=== PATIENT | female | born 1935 | race Caucasian/White ===

== ENCOUNTER 2017-11-12 09:41 | Inpatient (IN) | payer OTHER ==
[~2017-11-12] VITALS: Ht 149.9 cm; Wt 49.9 kg
[2017-11-12] MEDS ORDERED: XANAX2 MG PO (09:52)
[2017-11-17] MEDS ORDERED: LOSARTAN POTASS25 MG PO (11:40)
[2017-11-17] MEDS ORDERED: ISORDIL10 MG PO (11:40)
[2017-11-17] MEDS ORDERED: CLOPIDOGREL BIS75 MG PO (11:40)
[2017-11-17] MEDS ORDERED: LIPITOR20 MG PO (11:40)
[2017-11-17] MEDS ORDERED: TOPROL XL50 M1 PO (11:40)
[2017-11-17] MEDS ORDERED: SERTRALINE HCL25 MG PO (11:41)
[2017-11-17] MEDS ORDERED: XANAX2 MG PO (11:41)
[2017-11-17] MEDS ORDERED: ASA-EC81 MG PO (11:41)
[2017-11-17] MEDS ORDERED: NAMENDA1 EACH PO (11:41)
== END 2017-11-17 14:29 | DRG 281 ==
LOC: ER 09:41 → SEC-K 11-13 09:18 → SURH 11-13 09:18 → MEDI 11-13 09:43 → SURH 11-13 13:39
PROC: B246ZZZ Ultrasonography of Right and Left Heart (ICD-10-PCS; principal; 2017-11-13)
PROC: 4A12X4Z Monitoring of Cardiac Electrical Activity, External Approach (ICD-10-PCS; 2017-11-13)
PROC: BW28ZZZ Computerized Tomography (CT Scan) of Head (ICD-10-PCS; 2017-11-14)
PROC: B030ZZZ Magnetic Resonance Imaging (MRI) of Brain (ICD-10-PCS; 2017-11-15)
DX: I21.4 Non-ST elevation (NSTEMI) myocardial infarction (principal); F05 Delirium due to known physiological condition; I10 Essential (primary) hypertension; F03.90 Unspecified dementia, unspecified severity, without behavioral disturbance, psychotic disturbance, mood disturbance, and anxiety; Z78.1 Physical restraint status
CPT/HCPCS: 70553

== ENCOUNTER 2019-01-22 11:09 | Emergency (ER) | payer OTHER ==
[~2019-01-22] VITALS: Ht 147.3 cm; Wt 36.3 kg
[~2019-01-22 11:09] MED LIST: ASA-EC81 MG PO; CLOPIDOGREL BIS75 MG PO; ISORDIL10 MG PO; LIPITOR20 MG PO; LOSARTAN POTASS25 MG PO; NAMENDA1 EACH PO; SERTRALINE HCL25 MG PO; TOPROL XL50 M1 PO; XANAX2 MG PO
== END 2019-01-22 20:47 | disposition home or self-care (01) ==
LOC: ER 11:09
DX: S00.83XA Contusion of other part of head, initial encounter (principal); I16.0 Hypertensive urgency; I10 Essential (primary) hypertension; W18.09XA Striking against other object with subsequent fall, initial encounter; Y93.89 Activity, other specified; Y92.018 Other place in single-family (private) house as the place of occurrence of the external cause; Y99.8 Other external cause status